=== PATIENT | male | born 1975 | race Two or more races ===

== ENCOUNTER 2020-08-08 18:20 | Emergency (ER) | payer OTHER ==
[~2020-08-08] VITALS: Ht 170.2 cm; Wt 96.2 kg
[2020-08-08 18:37] VITALS: BP 120/94
--- NOTE | 2020-08-08 19:36 | NUR ---
[facility] MAURY Dial[facility]
--- NOTE | 2020-08-08 19:36 | NUR ---
AWAITING FOR XRAY RESULTS
--- NOTE | 2020-08-08 20:17 | NUR ---
Patient discharged to home in stable condition. Written and verbal after care instructions given. Patient verbalizes understanding of instruction.pt. ambulatory with a steady gait
== END 2020-08-08 20:17 | disposition home or self-care (01) ==
LOC: EDSEX 18:20 → ER 18:20
DX: S90.121A Contusion of right lesser toe(s) without damage to nail, initial encounter (principal); W20.8XXA Other cause of strike by thrown, projected or falling object, initial encounter; Y93.89 Activity, other specified; Y92.89 Other specified places as the place of occurrence of the external cause; Y99.8 Other external cause status
CPT/HCPCS: 73660-TC